=== PATIENT | female | born 2000 | race Caucasian/White ===

== ENCOUNTER 2023-05-10 18:30 | Inpatient (IN) ==
[2023-05-10] MEDS ORDERED: LIDOCAINE 1% LOCAL 20 ML VIAL INFIL PRN (20:55)
[2023-05-10] MEDS ORDERED: OXYTOCIN 30 UNITS/NSS 30 UNITS/500 ML BAG IV PRN (20:55)
[2023-05-10] MEDS: LACTATED RINGER'S 1,000 ML IV PRN ×2 (21:15→22:05)
--- NOTE | 2023-05-10 21:44 | History & Physical Report ---
Date of Service May 10, 2023 Assessment & Plan (1) Supervision of normal first : Plan: Labor, admit to L&D. EFM/toco. Labs. Continue Keflex as prescribed for UTI. Desires epidural. History of Present Illness Chief Complaint: contractions Primary Care Provider: [facility] PCP 23yo @ 40 2/, contractions all day today. No leaking, scant vaginal bleeding. + movement. Allergies Allergy/AdvReac Type Severity Reaction Status Date / Time No Known Allergies Allergy Verified 05/05/23 10:53 Home Medications Medication Instructions Recorded Confirmed Type vitamin#30 30 mg iron-10 1 cap PO DAILY 09/20/22 05/10/23 History mg iron-folic acid 1 mg-omg3 capsule cephalexin 500 mg capsule 500 mg PO Q6H 10 days #40 caps 05/05/23 05/10/23 Rx Patient History Medical History Varicella vaccine No pertinent past medical history Surgical History S/P wisdom tooth extraction No pertinent past surgical history Family History Grandfather Kidney stone Mother Kidney stone Denies family history of Ovarian cancer Breast cancer Colorectal cancer Social History Smoking Status: Never smoker Second Hand Exposure: No; Do You Dip or Chew Tobacco: No; Hx Alcohol Use: No Hx Substance Use: No Preferred Language: Swedish Communication Ability: Effective Wood Buffer Required: No Beliefs That Will Affect Care: None marital status: marital status details: Duran [place] (24) [phone] Current Living Situation: Spouse Current Living Situation Comment: lives with , 1 cat, litter changing current occupational status: employed current occupation: [employer] Other Information That Helps Us Care for You: No Feels Safe at Home: Yes Safety Concerns: Feels Safe At This Time Assistive Devices: None Review of Systems All systems reviewed & are unremarkable except as noted in HPI & below Physical Exam Constitutional: WD/WN, vitals as above Respiratory: normal respiratory effort, lungs clear to auscultation no respiratory distress Cardiovascular: Rate/Rhythm: regular rate and regular rhythm Gastrointestinal (Abdomen): Inspection/Auscultation: abdomen normal to inspection Percussion/Palpation: abdomen soft; abdomen nontender Gravid. No s/s chorio or abruption. Skin: no rashes, warm and dry Psychiatric: A+Ox3, euthymic affect Results & Data Vital Signs (Past 12 Hours) Vital Signs Temp Pulse Resp BP 05/10/23 21:08 102 H 05/10/23 21:08 145/64 H 05/10/23 21:00 20 05/10/23 21:00 36.7 C 20 05/10/23 18:44 36.8 C 20 05/10/23 18:41 85 130/76 Monitoring External Monitor FHT Cat 1 [place] Q 2-3 SVE 7/100/0 Coding Level of Care Code None Diagnoses Supervision of normal first Z34.00
[2023-05-10 21:53] LABS: Hematocrit (blood only) 38.6 % (37.0-47.0); Hemoglobin 12.9 g/dl (12.0-16.0); Mean Corpuscular Hemoglobin 30.9 pg (25.0-34.0); Mean Corpuscular Hgb Conc 33.4 g/dL (32.0-36.0); Mean Corpuscular Volume 92.3 fL (80.0-100.0); Mean Platelet Volume 11.4 fL (9.4-12.4); Platelet Count 222 K/uL (130-400); RDW Coefficient of Variation 13.1 % (11.5-14.5); RDW Standard Deviation 44.1 fL (36.4-46.3); Red Blood Count 4.18 M/uL (4.20-5.40); White Blood Count 18.33 K/ul (4.8-10.8)
[2023-05-10] MEDS ORDERED: fentANYL 2 MCG/ML BUPIVacaine 0.125%-NSS 100ML BAG ONE (21:55)
[2023-05-10] MEDS ORDERED: SODIUM CHLORIDE 0.9% PF INJ 10 ML VIAL ONE (21:55)
[2023-05-10] MEDS ORDERED: fentaNYL citrate PF 100 MCG/2 ML VIAL ONE (21:55)
[2023-05-10] MEDS ORDERED: BUPIVACAINE 0.25% PF 30 ML VIAL ONE (21:55)
[2023-05-10] MEDS ORDERED: ePHEDrine sulfate 50 MG/ML AMP ONE (21:55)
[2023-05-10] MEDS ORDERED: LIDOCAINE 2%/EPINEPHRINE 1:200,000 20 ML PF ONE (21:55)
[2023-05-10] MEDS ORDERED: fentaNYL citrate PF 100 MCG/2 ML VIAL EPI PRN (22:15)
[2023-05-10] MEDS ORDERED: NALOXONE HCL 0.4 MG/1 ML VIAL/CARP IV PRN (22:15)
[2023-05-10] MEDS ORDERED: LIDOCAINE 2%/EPINEPHRINE 1:200,000 20 ML PF EPI STA (22:15)
[2023-05-10] MEDS ORDERED: diphenhydrAMINE 50 MG/ML VIAL IV PRN (22:15)
[2023-05-10] MEDS ORDERED: NALOXONE HCL 1 MG in SODIUM CHLORIDE 0.9% 1,000 ML IV PRN (22:15)
[2023-05-10] MEDS ORDERED: ROPIVACAINE 0.5% PF 5 MG/ML 20 ML VIAL EPI PRN (22:15)
[2023-05-10] MEDS ORDERED: SODIUM CHLORIDE 0.9% PF INJ 10 ML VIAL EPI PRN (22:15)
[2023-05-10] MEDS ORDERED: BUPIVACAINE 0.25% PF 30 ML VIAL EPI PRN (22:15)
[2023-05-10] MEDS ORDERED: LIDOCAINE 2% MPF LOCAL 5 ML VIAL EPI PRN (22:15)
[2023-05-10] MEDS ORDERED: fentaNYL citrate PF 100 MCG/2 ML VIAL EPI STA (22:15)
[2023-05-10] MEDS ORDERED: NALBUPHINE HCL 5 MG in SYRINGE 0 ML IV PRN (22:15)
[2023-05-10] MEDS ORDERED: ePHEDrine sulfate 50 MG/ML AMP IV PRN (22:15)
[2023-05-10] MEDS ORDERED: fentANYL 2 MCG/ML BUPIVacaine 0.125%-NSS 100ML BAG EPI PRN (22:15)
[2023-05-10] MEDS ORDERED: SODIUM CHLORIDE 0.9% PF INJ 10 ML VIAL EPI STA (22:15)
[2023-05-10] MEDS ORDERED: BUPIVACAINE 0.25% PF 30 ML VIAL EPI STA (22:15)
--- NOTE | 2023-05-10 22:15 | Anesthesiology Consultation ---
Date of Service May 10, 2023 Assessment & Plan (1) Encounter for pre-operative examination: Chart Review Chart Review: Patient NOT seen in Pre Admission Testing and Acceptable Risk for Labor Epidural Consults Requested none History Height/Weight Height: 5 ft 7 in Weight: 70.76 kg Allergies Allergy/AdvReac Type Severity Reaction Status Date / Time No Known Allergies Allergy Verified 05/05/23 10:53 Medications Home Medications Medication Instructions Recorded Confirmed Last Taken vitamin#30 30 mg iron-10 1 cap PO DAILY 09/20/22 05/10/23 05/10/23 mg iron-folic acid 1 mg-omg3 capsule cephalexin 500 mg capsule 500 mg PO Q6H 10 days #40 caps 05/05/23 05/10/23 05/10/23 Active Medications Generic Name Dose Route Start Last Admin Trade Name Freq PRN Reason Stop Dose Admin Lactated Ringer's 1,000 mls @ 125 mls/hr 05/10/23 20:55 05/10/23 22:05 Lr IV 05/12/23 20:54 999 mls/hr .Q8H PRN Administration L&D Protocol Protocol Past Medical History Medical History Varicella vaccine No pertinent past medical history Past Family History Family History Grandfather Kidney stone Mother Kidney stone Denies family history of Ovarian cancer Breast cancer Colorectal cancer Past Surgical History Surgical History S/P wisdom tooth extraction No pertinent past surgical history Social History Smoking Status: Never smoker Do You Dip or Chew Tobacco: No Hx Alcohol Use: No Hx Substance Use: No substance use type: does not use Physical Exam Vital Signs Last Vital Signs Temp 98.1 F 05/10/23 21:00 Pulse 86 05/10/23 22:12 Resp 20 05/10/23 22:00 BP 145/64 H 05/10/23 21:08 Pulse Ox 99 05/10/23 22:12 Testing Laboratory Results 05/10/23 21:12
[2023-05-11] MEDS: LACTATED RINGER'S 1,000 ML IV PRN ×2 (01:55→09:30)
--- NOTE | 2023-05-11 04:10 | Labor Progress Brief Note ---
Date of Service May 11, 2023 Subjective Comfortable with epidural. Not feeling urge to push. FHT Cat 1 [place] Q 2-3 SVE 10/100/+1 per RN. SROM meconium stained. Will labor down, plan to push when she feels urge. Assessment & Plan Admission and Anticipated Discharge Date Admission Date: May 10, 2023 Results & Data Vital Signs (Past 12 Hours) Vital Signs Temp Pulse Resp BP Pulse Ox 05/11/23 04:02 70 95 05/11/23 04:00 18 05/11/23 04:00 18 05/11/23 03:57 69 94 05/11/23 03:53 70 97/51 L 05/11/23 03:52 67 93 05/11/23 03:47 70 94 05/11/23 03:42 69 96 05/11/23 03:38 36.6 C 79 18 145/55 H 05/11/23 03:37 70 95 05/11/23 03:32 77 97 05/11/23 03:30 18 05/11/23 03:30 18 05/11/23 03:27 98 H 92 05/11/23 03:24 85 126/61 05/11/23 03:22 78 91 05/11/23 03:17 78 91 05/11/23 03:12 72 93 05/11/23 03:08 68 109/59 L 05/11/23 03:07 69 93 05/11/23 03:02 84 94 05/11/23 03:00 18 05/11/23 03:00 18 05/11/23 02:57 79 94 05/11/23 02:53 76 125/70 05/11/23 02:52 79 94 05/11/23 02:47 75 92 05/11/23 02:42 74 89 L 05/11/23 02:39 94 H 125/72 05/11/23 02:37 79 93 05/11/23 02:32 71 96 05/11/23 02:30 18 05/11/23 02:30 18 05/11/23 02:27 72 96 05/11/23 02:23 70 101/58 L 05/11/23 02:22 71 94 05/11/23 02:17 78 95 05/11/23 02:12 76 94 05/11/23 02:08 81 102/55 L 05/11/23 02:07 67 94 05/11/23 02:02 79 95 05/11/23 02:00 18 05/11/23 02:00 18 05/11/23 01:57 75 91 05/11/23 01:53 74 108/52 L 05/11/23 01:52 73 91 05/11/23 01:47 73 92 05/11/23 01:42 89 94 05/11/23 01:41 71 93/50 L 05/11/23 01:37 78 91 05/11/23 01:32 107 H 95 05/11/23 01:30 18 05/11/23 01:30 18 05/11/23 01:27 73 95 05/11/23 01:23 88 121/72 05/11/23 01:22 75 95 05/11/23 01:17 73 94 05/11/23 01:12 78 96 05/11/23 01:09 69 115/68 05/11/23 01:07 77 95 05/11/23 01:02 80 94 05/11/23 01:00 18 05/11/23 01:00 18 05/11/23 00:57 75 94 05/11/23 00:54 86 119/67 05/11/23 00:52 96 H 96 05/11/23 00:47 77 96 05/11/23 00:42 79 93 05/11/23 00:38 114 H 130/80 05/11/23 00:37 103 H 92 05/11/23 00:32 92 H 95 05/11/23 00:30 18 05/11/23 00:30 18 05/11/23 00:27 92 H 96 05/11/23 00:23 95 H 118/88 05/11/23 00:22 89 94 05/11/23 00:17 85 96 05/11/23 00:12 81 94 05/11/23 00:09 90 119/68 05/11/23 00:07 87 95 05/11/23 00:02 74 95 05/11/23 00:00 20 05/11/23 00:00 36.7 C 20 05/10/23 23:57 95 05/10/23 23:57 79 05/10/23 23:57 107/53 L 05/10/23 23:51 94 05/10/23 23:51 88 05/10/23 23:46 97 05/10/23 23:46 77 05/10/23 23:38 95 H 05/10/23 23:38 118/63 05/10/23 23:37 88 L 05/10/23 23:37 88 05/10/23 23:32 91 05/10/23 23:32 85 05/10/23 23:30 20 05/10/23 23:30 20 05/10/23 23:27 91 05/10/23 23:27 89 05/10/23 23:22 69 L 05/10/23 23:22 93 H 05/10/23 23:21 75 L 05/10/23 23:21 97 H 05/10/23 23:17 96 05/10/23 23:17 89 05/10/23 23:12 95 05/10/23 23:12 87 05/10/23 23:09 87 05/10/23 23:09 116/54 L 05/10/23 23:07 93 05/10/23 23:07 89 05/10/23 23:04 86 05/10/23 23:04 135/59 L 05/10/23 23:02 96 05/10/23 23:02 92 H 05/10/23 23:00 20 05/10/23 23:00 20 05/10/23 23:00 20 05/10/23 23:00 20 05/10/23 22:58 87 05/10/23 22:58 128/69 05/10/23 22:57 95 05/10/23 22:57 83 05/10/23 22:53 85 05/10/23 22:53 116/72 05/10/23 22:52 18 05/10/23 22:52 18 05/10/23 22:52 94 05/10/23 22:52 87 05/10/23 22:48 104 H 05/10/23 22:48 116/67 05/10/23 22:47 96 05/10/23 22:47 104 H 05/10/23 22:44 18 05/10/23 22:44 18 05/10/23 22:42 96 05/10/23 22:42 83 05/10/23 22:42 80 05/10/23 22:42 120/60 05/10/23 22:39 18 05/10/23 22:39 18 05/10/23 22:39 85 05/10/23 22:39 128/61 05/10/23 22:37 18 05/10/23 22:37 18 05/10/23 22:37 96 05/10/23 22:37 87 05/10/23 22:35 18 05/10/23 22:35 18 05/10/23 22:35 84 05/10/23 22:35 131/58 L 05/10/23 22:33 86 05/10/23 22:33 141/76 H 05/10/23 22:32 18 05/10/23 22:32 18 05/10/23 22:32 98 05/10/23 22:32 100 H 05/10/23 22:31 85 05/10/23 22:31 115/67 05/10/23 22:30 20 05/10/23 22:30 20 05/10/23 22:29 92 H 05/10/23 22:29 133/92 05/10/23 22:27 99 05/10/23 22:27 87 05/10/23 22:22 96 05/10/23 22:22 109 H 05/10/23 22:17 95 05/10/23 22:17 91 H 05/10/23 22:16 88 05/10/23 22:16 131/80 05/10/23 22:12 99 05/10/23 22:12 86 05/10/23 22:07 99 05/10/23 22:07 84 05/10/23 22:02 99 05/10/23 22:02 82 05/10/23 22:00 20 05/10/23 22:00 20 05/10/23 21:57 99 05/10/23 21:57 98 H 05/10/23 21:52 99 05/10/23 21:52 86 05/10/23 21:47 96 05/10/23 21:47 90 05/10/23 21:42 100 05/10/23 21:42 87 05/10/23 21:42 93 05/10/23 21:42 89 05/10/23 21:30 18 05/10/23 21:30 18 05/10/23 21:08 102 H 05/10/23 21:08 145/64 H 05/10/23 21:00 20 05/10/23 21:00 36.7 C 20 05/10/23 18:44 36.8 C 20 05/10/23 18:41 85 130/76 Coding Level of Care Code None
[2023-05-11] MEDS ORDERED: OXYTOCIN 30 UNITS/NSS 30 UNITS/500 ML BAG IV PRN ×2 (05:45→10:35)
--- NOTE | 2023-05-11 07:40 | Labor Progress Brief Note ---
Date of Service May 11, 2023 Subjective Has been pushing for 1.5h, FHT 140-150s, mod [place], occ variables with pushing. station 2+ Pitocin augmenting. Continue pushing. Assessment & Plan Admission and Anticipated Discharge Date Admission Date: May 10, 2023 Results & Data Vital Signs (Past 12 Hours) Vital Signs Temp Pulse Resp BP Pulse Ox 05/11/23 07:36 71 L 05/11/23 07:36 107 H 05/11/23 07:36 105 H 74 L 05/11/23 07:31 98 H 95 05/11/23 07:26 84 L 05/11/23 07:26 93 H 05/11/23 07:26 81 78 L 05/11/23 07:23 95 H 116/56 L 05/11/23 07:21 20 05/11/23 07:21 36.8 C 85 20 79 L 05/11/23 07:08 76 120/56 L 89 L 05/11/23 07:03 96 H 96 05/11/23 07:00 20 05/11/23 07:00 20 05/11/23 06:58 86 93 05/11/23 06:53 94 05/11/23 06:53 94 H 05/11/23 06:53 90 129/70 05/11/23 06:48 75 92 05/11/23 06:43 81 71 L 05/11/23 06:42 83 93 05/11/23 06:41 36.5 C 05/11/23 06:39 84 73/51 L 05/11/23 06:37 79 88 L 05/11/23 06:33 98 H 75 L 05/11/23 06:32 96 H 86 L 05/11/23 06:30 18 05/11/23 06:30 18 05/11/23 06:27 114 H 85 L 05/11/23 06:23 81 118/57 L 05/11/23 06:22 89 90 05/11/23 06:20 87 75 L 05/11/23 06:17 86 94 05/11/23 06:14 114 H 79 L 05/11/23 06:12 98 H 99 05/11/23 06:08 126/65 05/11/23 06:07 93 H 82 L 05/11/23 06:02 86 100 05/11/23 06:01 96 H 78 L 05/11/23 06:00 20 05/11/23 06:00 20 05/11/23 05:57 95 H 98 05/11/23 05:53 68 114/59 L 05/11/23 05:52 82 98 05/11/23 05:47 71 94 05/11/23 05:42 65 95 05/11/23 05:38 76 109/59 L 05/11/23 05:37 71 95 05/11/23 05:32 74 95 05/11/23 05:30 18 05/11/23 05:30 18 05/11/23 05:27 72 95 05/11/23 05:23 75 107/62 05/11/23 05:22 71 96 05/11/23 05:17 76 95 05/11/23 05:12 63 95 05/11/23 05:08 71 108/58 L 05/11/23 05:07 69 94 05/11/23 05:02 72 96 05/11/23 05:00 18 05/11/23 05:00 18 05/11/23 04:57 68 96 05/11/23 04:54 66 99/55 L 05/11/23 04:52 76 94 05/11/23 04:47 69 97 05/11/23 04:42 74 94 05/11/23 04:38 67 99/51 L 05/11/23 04:37 70 94 05/11/23 04:32 67 95 05/11/23 04:30 18 05/11/23 04:30 18 05/11/23 04:27 70 94 05/11/23 04:23 77 104/60 05/11/23 04:22 74 95 05/11/23 04:17 69 95 05/11/23 04:12 88 96 05/11/23 04:08 70 104/56 L 05/11/23 04:07 73 93 05/11/23 04:02 70 95 05/11/23 04:00 18 05/11/23 04:00 18 05/11/23 03:57 69 94 05/11/23 03:53 70 97/51 L 05/11/23 03:52 67 93 05/11/23 03:47 70 94 05/11/23 03:42 69 96 05/11/23 03:38 36.6 C 79 18 145/55 H 05/11/23 03:37 70 95 05/11/23 03:32 77 97 05/11/23 03:30 18 05/11/23 03:30 18 05/11/23 03:27 98 H 92 05/11/23 03:24 85 126/61 05/11/23 03:22 78 91 05/11/23 03:17 78 91 05/11/23 03:12 72 93 05/11/23 03:08 68 109/59 L 05/11/23 03:07 69 93 05/11/23 03:02 84 94 05/11/23 03:00 18 05/11/23 03:00 18 05/11/23 02:57 79 94 05/11/23 02:53 76 125/70 05/11/23 02:52 79 94 05/11/23 02:47 75 92 05/11/23 02:42 74 89 L 05/11/23 02:39 94 H 125/72 05/11/23 02:37 79 93 05/11/23 02:32 71 96 05/11/23 02:30 18 05/11/23 02:30 18 05/11/23 02:27 72 96 05/11/23 02:23 70 101/58 L 05/11/23 02:22 71 94 05/11/23 02:17 78 95 05/11/23 02:12 76 94 05/11/23 02:08 81 102/55 L 05/11/23 02:07 67 94 05/11/23 02:02 79 95 05/11/23 02:00 18 05/11/23 02:00 18 05/11/23 01:57 75 91 05/11/23 01:53 74 108/52 L 05/11/23 01:52 73 91 05/11/23 01:47 73 92 05/11/23 01:42 89 94 05/11/23 01:41 71 93/50 L 05/11/23 01:37 78 91 05/11/23 01:32 107 H 95 05/11/23 01:30 18 05/11/23 01:30 18 05/11/23 01:27 73 95 05/11/23 01:23 88 121/72 05/11/23 01:22 75 95 05/11/23 01:17 73 94 05/11/23 01:12 78 96 05/11/23 01:09 69 115/68 05/11/23 01:07 77 95 05/11/23 01:02 80 94 05/11/23 01:00 18 05/11/23 01:00 18 05/11/23 00:57 75 94 05/11/23 00:54 86 119/67 05/11/23 00:52 96 H 96 05/11/23 00:47 77 96 05/11/23 00:42 79 93 05/11/23 00:38 114 H 130/80 05/11/23 00:37 103 H 92 05/11/23 00:32 92 H 95 05/11/23 00:30 18 05/11/23 00:30 18 05/11/23 00:27 92 H 96 05/11/23 00:23 95 H 118/88 05/11/23 00:22 89 94 05/11/23 00:17 85 96 05/11/23 00:12 81 94 05/11/23 00:09 90 119/68 05/11/23 00:07 87 95 05/11/23 00:02 74 95 05/11/23 00:00 20 05/11/23 00:00 36.7 C 20 05/10/23 23:57 95 05/10/23 23:57 79 05/10/23 23:57 107/53 L 05/10/23 23:51 94 05/10/23 23:51 88 05/10/23 23:46 97 05/10/23 23:46 77 05/10/23 23:38 95 H 05/10/23 23:38 118/63 05/10/23 23:37 88 L 05/10/23 23:37 88 05/10/23 23:32 91 05/10/23 23:32 85 05/10/23 23:30 20 05/10/23 23:30 20 05/10/23 23:27 91 05/10/23 23:27 89 05/10/23 23:22 69 L 05/10/23 23:22 93 H 05/10/23 23:21 75 L 05/10/23 23:21 97 H 05/10/23 23:17 96 05/10/23 23:17 89 05/10/23 23:12 95 05/10/23 23:12 87 05/10/23 23:09 87 05/10/23 23:09 116/54 L 05/10/23 23:07 93 05/10/23 23:07 89 05/10/23 23:04 86 05/10/23 23:04 135/59 L 05/10/23 23:02 96 05/10/23 23:02 92 H 05/10/23 23:00 20 05/10/23 23:00 20 05/10/23 23:00 20 05/10/23 23:00 20 05/10/23 22:58 87 05/10/23 22:58 128/69 05/10/23 22:57 95 05/10/23 22:57 83 05/10/23 22:53 85 05/10/23 22:53 116/72 05/10/23 22:52 18 05/10/23 22:52 18 05/10/23 22:52 94 05/10/23 22:52 87 05/10/23 22:48 104 H 05/10/23 22:48 116/67 05/10/23 22:47 96 05/10/23 22:47 104 H 05/10/23 22:44 18 05/10/23 22:44 18 05/10/23 22:42 96 05/10/23 22:42 83 05/10/23 22:42 80 05/10/23 22:42 120/60 05/10/23 22:39 18 05/10/23 22:39 18 05/10/23 22:39 85 05/10/23 22:39 128/61 05/10/23 22:37 18 05/10/23 22:37 18 05/10/23 22:37 96 05/10/23 22:37 87 05/10/23 22:35 18 05/10/23 22:35 18 05/10/23 22:35 84 05/10/23 22:35 131/58 L 05/10/23 22:33 86 05/10/23 22:33 141/76 H 05/10/23 22:32 18 05/10/23 22:32 18 05/10/23 22:32 98 05/10/23 22:32 100 H 05/10/23 22:31 85 05/10/23 22:31 115/67 05/10/23 22:30 20 05/10/23 22:30 20 05/10/23 22:29 92 H 05/10/23 22:29 133/92 05/10/23 22:27 99 05/10/23 22:27 87 05/10/23 22:22 96 05/10/23 22:22 109 H 05/10/23 22:17 95 05/10/23 22:17 91 H 05/10/23 22:16 88 05/10/23 22:16 131/80 05/10/23 22:12 99 05/10/23 22:12 86 05/10/23 22:07 99 05/10/23 22:07 84 05/10/23 22:02 99 05/10/23 22:02 82 05/10/23 22:00 20 05/10/23 22:00 20 05/10/23 21:57 99 05/10/23 21:57 98 H 05/10/23 21:52 99 05/10/23 21:52 86 05/10/23 21:47 96 05/10/23 21:47 90 05/10/23 21:42 100 05/10/23 21:42 87 05/10/23 21:42 93 05/10/23 21:42 89 05/10/23 21:30 18 05/10/23 21:30 18 05/10/23 21:08 102 H 05/10/23 21:08 145/64 H 05/10/23 21:00 20 05/10/23 21:00 36.7 C 20 Coding Level of Care Code None
--- NOTE | 2023-05-11 08:23 | Labor Progress Brief Note ---
Date of Service May 11, 2023 Subjective Pushing with ctx. FHT 150s, mod [place], + accels, occ variables [place] q 2 station 2+ to 3+ Assessment & Plan Admission and Anticipated Discharge Date Admission Date: May 10, 2023 Results & Data Vital Signs (Past 12 Hours) Vital Signs Temp Pulse Resp BP Pulse Ox 05/11/23 08:17 94 H 95 05/11/23 08:12 92 H 94 05/11/23 08:08 85 135/62 05/11/23 08:07 82 90 05/11/23 08:02 86 89 L 05/11/23 08:00 18 05/11/23 08:00 18 05/11/23 07:56 105 H 93 05/11/23 07:53 110 H 145/62 H 05/11/23 07:51 86 92 05/11/23 07:46 92 H 90 05/11/23 07:41 90 96 05/11/23 07:39 94 H 134/60 05/11/23 07:36 71 L 05/11/23 07:36 107 H 05/11/23 07:36 105 H 74 L 05/11/23 07:31 98 H 95 05/11/23 07:26 84 L 05/11/23 07:26 93 H 05/11/23 07:26 81 78 L 05/11/23 07:23 95 H 116/56 L 05/11/23 07:21 20 05/11/23 07:21 36.8 C 85 20 79 L 05/11/23 07:08 76 120/56 L 89 L 05/11/23 07:03 96 H 96 05/11/23 07:00 20 05/11/23 07:00 20 05/11/23 06:58 86 93 05/11/23 06:53 94 05/11/23 06:53 94 H 05/11/23 06:53 90 129/70 05/11/23 06:48 75 92 05/11/23 06:43 81 71 L 05/11/23 06:42 83 93 05/11/23 06:41 36.5 C 05/11/23 06:39 84 73/51 L 05/11/23 06:37 79 88 L 05/11/23 06:33 98 H 75 L 05/11/23 06:32 96 H 86 L 05/11/23 06:30 18 05/11/23 06:30 18 05/11/23 06:27 114 H 85 L 05/11/23 06:23 81 118/57 L 05/11/23 06:22 89 90 05/11/23 06:20 87 75 L 05/11/23 06:17 86 94 05/11/23 06:14 114 H 79 L 05/11/23 06:12 98 H 99 05/11/23 06:08 126/65 05/11/23 06:07 93 H 82 L 05/11/23 06:02 86 100 05/11/23 06:01 96 H 78 L 05/11/23 06:00 20 05/11/23 06:00 20 05/11/23 05:57 95 H 98 05/11/23 05:53 68 114/59 L 05/11/23 05:52 82 98 05/11/23 05:47 71 94 05/11/23 05:42 65 95 05/11/23 05:38 76 109/59 L 05/11/23 05:37 71 95 05/11/23 05:32 74 95 05/11/23 05:30 18 05/11/23 05:30 18 05/11/23 05:27 72 95 05/11/23 05:23 75 107/62 05/11/23 05:22 71 96 05/11/23 05:17 76 95 05/11/23 05:12 63 95 05/11/23 05:08 71 108/58 L 05/11/23 05:07 69 94 05/11/23 05:02 72 96 05/11/23 05:00 18 05/11/23 05:00 18 05/11/23 04:57 68 96 05/11/23 04:54 66 99/55 L 05/11/23 04:52 76 94 05/11/23 04:47 69 97 05/11/23 04:42 74 94 05/11/23 04:38 67 99/51 L 05/11/23 04:37 70 94 05/11/23 04:32 67 95 05/11/23 04:30 18 05/11/23 04:30 18 05/11/23 04:27 70 94 05/11/23 04:23 77 104/60 05/11/23 04:22 74 95 02/04/24 04:17 69 95 05/11/23 04:12 88 96 05/11/23 04:08 70 104/56 L 05/11/23 04:07 73 93 05/11/23 04:02 70 95 05/11/23 04:00 18 05/11/23 04:00 18 05/11/23 03:57 69 94 05/11/23 03:53 70 97/51 L 05/11/23 03:52 67 93 05/11/23 03:47 70 94 05/11/23 03:42 69 96 05/11/23 03:38 36.6 C 79 18 145/55 H 05/11/23 03:37 70 95 05/11/23 03:32 77 97 05/11/23 03:30 18 05/11/23 03:30 18 05/11/23 03:27 98 H 92 05/11/23 03:24 85 126/61 05/11/23 03:22 78 91 05/11/23 03:17 78 91 05/11/23 03:12 72 93 05/11/23 03:08 68 109/59 L 05/11/23 03:07 69 93 05/11/23 03:02 84 94 05/11/23 03:00 18 05/11/23 03:00 18 05/11/23 02:57 79 94 05/11/23 02:53 76 125/70 05/11/23 02:52 79 94 05/11/23 02:47 75 92 05/11/23 02:42 74 89 L 05/11/23 02:39 94 H 125/72 05/11/23 02:37 79 93 05/11/23 02:32 71 96 05/11/23 02:30 18 05/11/23 02:30 18 05/11/23 02:27 72 96 05/11/23 02:23 70 101/58 L 05/11/23 02:22 71 94 05/11/23 02:17 78 95 05/11/23 02:12 76 94 05/11/23 02:08 81 102/55 L 05/11/23 02:07 67 94 05/11/23 02:02 79 95 05/11/23 02:00 18 05/11/23 02:00 18 05/11/23 01:57 75 91 05/11/23 01:53 74 108/52 L 05/11/23 01:52 73 91 05/11/23 01:47 73 92 05/11/23 01:42 89 94 05/11/23 01:41 71 93/50 L 05/11/23 01:37 78 91 05/11/23 01:32 107 H 95 05/11/23 01:30 18 05/11/23 01:30 18 05/11/23 01:27 73 95 05/11/23 01:23 88 121/72 05/11/23 01:22 75 95 05/11/23 01:17 73 94 05/11/23 01:12 78 96 05/11/23 01:09 69 115/68 05/11/23 01:07 77 95 05/11/23 01:02 80 94 05/11/23 01:00 18 05/11/23 01:00 18 05/11/23 00:57 75 94 05/11/23 00:54 86 119/67 05/11/23 00:52 96 H 96 05/11/23 00:47 77 96 05/11/23 00:42 79 93 05/11/23 00:38 114 H 130/80 05/11/23 00:37 103 H 92 05/11/23 00:32 92 H 95 05/11/23 00:30 18 05/11/23 00:30 18 05/11/23 00:27 92 H 96 05/11/23 00:23 95 H 118/88 05/11/23 00:22 89 94 05/11/23 00:17 85 96 05/11/23 00:12 81 94 05/11/23 00:09 90 119/68 05/11/23 00:07 87 95 05/11/23 00:02 74 95 05/11/23 00:00 20 05/11/23 00:00 36.7 C 20 05/10/23 23:57 95 05/10/23 23:57 79 05/10/23 23:57 107/53 L 05/10/23 23:51 94 05/10/23 23:51 88 05/10/23 23:46 97 05/10/23 23:46 77 05/10/23 23:38 95 H 05/10/23 23:38 118/63 02/03/24 23:37 88 L 05/10/23 23:37 88 05/10/23 23:32 91 05/10/23 23:32 85 05/10/23 23:30 20 05/10/23 23:30 20 05/10/23 23:27 91 05/10/23 23:27 89 05/10/23 23:22 69 L 05/10/23 23:22 93 H 05/10/23 23:21 75 L 05/10/23 23:21 97 H 05/10/23 23:17 96 05/10/23 23:17 89 05/10/23 23:12 95 05/10/23 23:12 87 05/10/23 23:09 87 05/10/23 23:09 116/54 L 05/10/23 23:07 93 05/10/23 23:07 89 05/10/23 23:04 86 05/10/23 23:04 135/59 L 05/10/23 23:02 96 05/10/23 23:02 92 H 05/10/23 23:00 20 05/10/23 23:00 20 05/10/23 23:00 20 05/10/23 23:00 20 05/10/23 22:58 87 05/10/23 22:58 128/69 05/10/23 22:57 95 05/10/23 22:57 83 05/10/23 22:53 85 05/10/23 22:53 116/72 05/10/23 22:52 18 05/10/23 22:52 18 05/10/23 22:52 94 05/10/23 22:52 87 05/10/23 22:48 104 H 05/10/23 22:48 116/67 05/10/23 22:47 96 05/10/23 22:47 104 H 05/10/23 22:44 18 05/10/23 22:44 18 05/10/23 22:42 96 05/10/23 22:42 83 05/10/23 22:42 80 05/10/23 22:42 120/60 05/10/23 22:39 18 05/10/23 22:39 18 05/10/23 22:39 85 05/10/23 22:39 128/61 05/10/23 22:37 18 05/10/23 22:37 18 05/10/23 22:37 96 05/10/23 22:37 87 05/10/23 22:35 18 05/10/23 22:35 18 05/10/23 22:35 84 05/10/23 22:35 131/58 L 05/10/23 22:33 86 05/10/23 22:33 141/76 H 05/10/23 22:32 18 05/10/23 22:32 18 05/10/23 22:32 98 05/10/23 22:32 100 H 05/10/23 22:31 85 05/10/23 22:31 115/67 05/10/23 22:30 20 05/10/23 22:30 20 05/10/23 22:29 92 H 05/10/23 22:29 133/92 05/10/23 22:27 99 05/10/23 22:27 87 05/10/23 22:22 96 05/10/23 22:22 109 H 05/10/23 22:17 95 05/10/23 22:17 91 H 05/10/23 22:16 88 05/10/23 22:16 131/80 05/10/23 22:12 99 05/10/23 22:12 86 05/10/23 22:07 99 05/10/23 22:07 84 05/10/23 22:02 99 05/10/23 22:02 82 05/10/23 22:00 20 05/10/23 22:00 20 05/10/23 21:57 99 05/10/23 21:57 98 H 05/10/23 21:52 99 05/10/23 21:52 86 05/10/23 21:47 96 05/10/23 21:47 90 05/10/23 21:42 100 05/10/23 21:42 87 05/10/23 21:42 93 05/10/23 21:42 89 05/10/23 21:30 18 05/10/23 21:30 18 05/10/23 21:08 102 H 05/10/23 21:08 145/64 H 05/10/23 21:00 20 05/10/23 21:00 36.7 C 20 Coding Level of Care Code None
--- NOTE | 2023-05-11 10:21 | Delivery Summary ---
Vaginal Delivery Summary Date of Service May 11, 2023 Vaginal Delivery Summary and 2nd Degree LAC Vaginal Delivery Summary: Pre-delivery diagnoses: 23yo @ 40 3/7, spontaneous labor Post-delivery diagnoses: same Procedure: spontaneous vaginal delivery, repair of 2nd degree perineal laceration Surgeon: Nila Bueno DO Complications: none Findings: Viable female . Apgars: 8/9. Weight pending, please see nursery records Estimated blood loss: 300ml Description of delivery: The patient progressed to complete with epidural anesthesia. She then began to push. She pushed for 3.5 hours. She spontaneously vaginally delivered a viable from the cephalic presentation. The head delivered in OP position. The anterior shoulder delivered, followed by the posterior shoulder, followed by the body. The baby was placed on mother's abdomen and a spontaneous cry was heard. The cord was doubly clamped and cut. Cord blood was obtained. The placenta was delivered spontaneously intact with a 3-vessel cord. The uterus and vagina were swept of clots and debris. IV pitocin was given. The uterus became firm. The cervix, vagina, and perineum were inspected. A 2nd degree perineal laceration noted. Did not tear through anal sphincter muscle, fascia reapproximated with single [id number] stitch of 3-0 Chromic. Remainder of repair reapproximated with 3-0 Vicryl. Excellent hemostasis was observed. The mother and baby are recovering in stable and good condition in the room. Sponge, needle and instrument counts were correct x 2. Nila Bueno DO [facility] Vaginal Delivery Charge Vaginal Delivery Codes: 90102 global code for the antepartum, delivery, and post- Delivery Type Details: and 2nd Degree LAC
[2023-05-11] MEDS ORDERED: DIPHTHER/TETAN/PERTUS Vaccine (Tdap, Adol/Adult) 0.5mL IM ONE (10:35)
[2023-05-11] MEDS ORDERED: HYDROCORTISONE ACETATE 25 MG SUPP PR PRN (10:35)
[2023-05-11] MEDS ORDERED: oxyCODONE/ACETAMINOPHEN 5mg/325mg TAB PO PRN (10:35)
[2023-05-11] MEDS ORDERED: bisacodyL 10 MG SUPP PR PRN (10:35)
[2023-05-11] MEDS: IBUPROFEN 600 MG TAB PO PRN ×3 (10:55→20:16)
--- NOTE | 2023-05-11 11:00 | Anesthesia Procedure Note ---
Date of Service May 11, 2023 Anesthesia Post Epidural Note Vital Signs Vital Signs: Temp Pulse Resp BP Pulse Ox 36.8 C 100 H 20 119/61 78 L 05/11/23 09:28 05/11/23 10:53 05/11/23 10:38 05/11/23 10:53 05/11/23 08:45 Pain Intensity Back: Pain Intensity: 10 Bilateral Lower Abdomen: Pain Intensity: 1 Notes Mental Status: alert / awake / arousable Nausea / Vomiting: adequately controlled Pain: adequately controlled Airway Patency, RR, SpO2: stable & adequate BP & HR: stable & adequate Hydration State: stable & adequate Neuraxial Anesthesia: was administered and sensory block is resolving Anesthetic Complications: no major complications apparent Epidural: Removed without complications and With tip intact
[2023-05-11] MEDS: cephALEXin 500 MG CAP PO SCH ×4 (11:01→23:33)
[2023-05-11] MEDS: BENZOCAINE 20% SPRY 85 APPLN/85 GM CAN EXT PRN (14:09)
[2023-05-11] MEDS: ACETAMINOPHEN 325 MG TAB PO PRN (14:31)
[2023-05-11] MEDS: DOCUSATE SODIUM 100 MG CAP PO SCH (20:16)
[2023-05-12] MEDS: IBUPROFEN 600 MG TAB PO PRN ×5 (00:07→23:16)
[2023-05-12] MEDS: ACETAMINOPHEN 325 MG TAB PO PRN ×2 (01:02→20:24)
[2023-05-12 06:27] LABS: Hematocrit (blood only) 34.9 % (37.0-47.0); Hemoglobin 11.5 g/dl (12.0-16.0)
--- NOTE | 2023-05-12 07:21 | Obstetrical Progress Note ---
Date of Service May 12, 2023 Assessment & Plan (1) Supervision of normal first : PPD#1 doing well. ok. Routine care, encouraged ambulation. Anticipate DC home tomorrow. Subjective Ambulation: ambulating normally Voiding: no voiding problems Diet Tolerance:: regular diet Lochia:: Moderate Review of Systems All systems reviewed & are unremarkable except as noted in HPI & below Physical Exam Constitutional WD/WN, vitals as above no acute distress Respiratory normal respiratory effort Cardiovascular Rate/Rhythm: regular rate and regular rhythm Gastrointestinal (Abdomen) Inspection/Auscultation: abdomen normal to inspection; abdomen not distended Percussion/Palpation: abdomen soft Genitourinary OB Exam Abdomen: + fundal height Fundus: + firm; not tender Results & Data Vital Signs (Past 12 Hours) Vital Signs Temp Pulse Resp BP Pulse Ox O2 Del Method 05/12/23 03:55 36.6 C 67 20 108/58 L 97 Room Air 05/11/23 23:35 36.5 C 82 20 117/77 98 Room Air
[2023-05-12] MEDS: cephALEXin 500 MG CAP PO SCH ×4 (07:50→20:24)
[2023-05-12] MEDS: DOCUSATE SODIUM 100 MG CAP PO SCH ×2 (07:50→19:27)
[2023-05-12] MEDS: PRENATAL VITAMIN 1 TAB PO SCH (07:50)
[2023-05-12] MEDS ORDERED: bisacodyL 5 MG TABEC PO SCH (20:00)
[2023-05-13] MEDS: IBUPROFEN 600 MG TAB PO PRN ×2 (05:10→10:03)
--- NOTE | 2023-05-13 07:36 | Obstetrical Progress Note ---
Date of Service May 13, 2023 Assessment & Plan (1) Encounter for care after hospital delivery: Plan Doing well. Plan d/c. Instructions given. Finish abio for uti. Call with concerns or issues. Day #:: 2 Subjective Ambulation: ambulating normally Voiding: no voiding problems Passing Gas:: Yes Diet Tolerance:: regular diet Lochia:: Small Feeding Type:: breast feeding Feeling well, just tired Physical Exam Constitutional WD/WN, vitals as above Cardiovascular Extremities: no calf tenderness and no edema Gastrointestinal (Abdomen) soft, nt, nd, ff/nt below u Psychiatric A+Ox3, euthymic affect Results & Data Vital Signs (Past 12 Hours) Vital Signs Temp Pulse Resp BP Pulse Ox O2 Del Method 05/13/23 00:18 36.4 C L 66 18 113/70 97 Room Air 05/12/23 20:25 36.4 C L 77 18 114/73 98 Room Air
[2023-05-13] MEDS: cephALEXin 500 MG CAP PO SCH ×2 (08:56→13:02)
[2023-05-13] MEDS: PRENATAL VITAMIN 1 TAB PO SCH (08:57)
[2023-05-13] MEDS: DOCUSATE SODIUM 100 MG CAP PO SCH (08:57)
[2023-05-13] MEDS: BENZOCAINE 20% SPRY 85 APPLN/85 GM CAN EXT PRN (10:03)
== END 2023-05-13 15:10 | disposition home or self-care (01) | DRG 807 ==
LOC: OPB 18:30 → 4S1 18:31 → 4E2 05-11 14:15